=== PATIENT | female | born 1955 | race African-American/Black ===

== ENCOUNTER 2016-07-05 03:12 | Inpatient (IN) | payer OTHER ==
[~2016-07-05] VITALS: Ht 154.9 cm; Wt 46.0 kg
--- NOTE | ~2016-07-05 | EKG ---
[place] [address] [facility] [place] [address] ELECTROCARDIOGRAM REPORT Name: GAVIOTA KELLOGG Room #: 170-1 ADM IN M.R.#: [id number] Admission: 07/05/16 Attend Phys: Carrington Mario Discharge: Date of : 59 Report #: [id number] THIS REPORT FOR: //name// [facility] ED Test Date: 2016-07-05 Test Time: 03:24:13 Pat Name: GAVIOTA ECHEVARRIA Department: Room: 170 Gender: F Resident Physician In Radiology: DEREK : 1955 Requested By: Radha Apple Order Number: [id number] MD: Jorge Meadows Measurements Intervals [place] Rate: 106 P: 75 MO: 157 QRS: 44 QRSD: 82 T: 1 QT: 337 QTc: 448 Interpretive Statements Sinus tachycardia Right atrial abnormality Poor R wave progression Borderline T wave abnormalities No previous ECG available for comparison Electronically Signed On 07-05-2016 8:08:34 [employer] by Jorge Meadows [email or web address] <ELECTRONICALLY SIGNED> By: Jorge Meadows MD, [facility] 07/05/16 0808 [id number] Jorge Meadows MD, FACC /EPI
[~2016-07-05 03:12] MED LIST: ASPIRIN325 PO; DIFLUCAN150 MG PO; ESTRADIOL 1 MG T1 M1 PO; IBUPROFEN 600600 M1 PO; IBUPROFEN 800800 M1 PO; KEFLEX500 MG PO; LASIX 20 MG TAB20 MG PO; LISINOPRIL-HCT1 EAC2 PO; LISINOPRIL10 MG PO; METFORMIN HCL500 MG PO; NEXIUM40 MG PO; POTASSIUM20 PO; PREDNISONE 20 M20 MG PO
[2016-07-05 03:13] VITALS: BP 197/133
[2016-07-05 03:24] LABS: ABSOLUTE NEUTROPHILS 3.8 thou/uL (1.4-8.2); BASOPHILS 0.6 % (0.0-2.0); EOSINOPHILS 0.2 % (0.0-3.0); HEMATOCRIT 43.6 % (37.0-47.0); HEMOGLOBIN 14.7 gm/dL (12.0-15.0); LYMPHOCYTES 13.4 % (24.0-44.0); MCH 31.6 pg (26.0-34.0); MCHC 33.7 % (28.0-37.0); MONOCYTES 11.1 % (1.0-8.0); PLATELET COUNT 258 thou/uL (150-400); POLYS 74.7 % (36.0-66.0); RBC 4.64 mil/uL (4.20-5.00); RDW 14.8 % (10.5-14.5); WBC 5.1 thou/uL (4.0-11.0)
[2016-07-05 03:28] LABS: MANUAL DIFF NO
[2016-07-05] MEDS ORDERED: PREDNISONE 20 M20 MG PO (03:32)
[2016-07-05] MEDS ORDERED: CLONAZEPAM 0.50.5 M1 PO (03:33)
[2016-07-05 03:39] LABS: ANION GAP 9 mmol/L (7-16); BUN 12 mg/dL (7-18); CALCIUM 9.6 mg/dL (8.5-10.1); CHLORIDE 98 mmol/L (98-107); CO2 32 mmol/L (21-32); CREATININE 0.9 mg/dL (0.6-1.3); GLUCOSE 138 mg/dL (70-99); POTASSIUM 3.2 mmol/L (3.5-5.1); SODIUM 139 mmol/L (136-145)
[2016-07-05 03:46] LABS: ALBUMIN 3.8 g/dL (3.4-5.0); ALKALINE PHOSPHATASE 144 U/L (46-116); NT-PRO BRAIN NAT PEPTIDE 116 pg/mL (<300); SGOT 16 U/L (15-37); SGPT 16 U/L (30-65); TOTAL BILIRUBIN 0.3 mg/dL (<0.1-1.0); TOTAL PROTEIN 8.7 g/dL (6.4-8.2); TROPONIN-I < 0.04 ng/mL (<0.04-0.07)
[2016-07-05 12:32] VITALS: BP 132/84
[2016-07-05 13:06] VITALS: BP 149/86
[2016-07-05 16:31] VITALS: BP 182/83
[2016-07-05 19:10] VITALS: BP 167/76
[2016-07-05 19:20] VITALS: BP 147/55
[2016-07-06] VITALS (8 sets, daily range): BP systolic 153–193; BP diastolic 70–99
[2016-07-06] MEDS ORDERED: HYDROCHLOROTHIA25 M2 PO (08:20)
[2016-07-06] MEDS ORDERED: COLACE100 MG PO (08:22)
[2016-07-06] MEDS ORDERED: LYRICA 75 MG CA75 MG PO (08:22)
[2016-07-06] MEDS ORDERED: IRON325 PO (08:23)
[2016-07-06] MEDS ORDERED: SINGULAIR 10 MG10 M1 PO (08:25)
[2016-07-06] MEDS ORDERED: ASPIR-TRIN325 MG PO (13:00)
[2016-07-07] VITALS (7 sets, daily range): BP systolic 114–205; BP diastolic 72–118
[2016-07-08] VITALS: BP 190/98
[2016-07-08 04:00] VITALS: BP 162/87
[2016-07-08 08:11] VITALS: BP 174/106
[2016-07-08] MEDS ORDERED: IRON325 PO (09:23)
[2016-07-08] MEDS ORDERED: DUONEB 2.5-0.5 M3 ML INH (09:23)
[2016-07-08] MEDS ORDERED: ASPIR-TRIN325 MG PO (09:24)
[2016-07-08] MEDS ORDERED: COZAAR 50 MG TA50 M1 PO (09:24)
[2016-07-08] MEDS ORDERED: IBUPROFEN 600600 M1 PO (09:24)
[2016-07-08] MEDS ORDERED: LISINOPRIL10 MG PO (09:24)
[2016-07-08] MEDS ORDERED: NEXIUM40 MG PO (09:25)
[2016-07-08] MEDS ORDERED: LYRICA 75 MG CA75 MG PO (09:25)
[2016-07-08] MEDS ORDERED: AMBIEN 5 MG TABL5 M1 PO (09:25)
[2016-07-08] MEDS ORDERED: CLONAZEPAM 0.50.5 M1 PO (09:25)
[2016-07-08] MEDS ORDERED: COLACE100 MG PO (09:25)
[2016-07-08] MEDS ORDERED: HYDROCHLOROTHIA25 M2 PO (09:25)
[2016-07-08] MEDS ORDERED: SINGULAIR 10 MG10 M1 PO (09:25)
[2016-07-08] MEDS ORDERED: PREDNISONE 20 M20 MG PO (09:26)
[2016-07-08] MEDS ORDERED: ESTRADIOL 1 MG T1 M1 PO (09:27)
[2016-07-08] MEDS ORDERED: LEVAQUIN 500 M500 M2 PO (09:27)
[2016-07-08 09:48] VITALS: BP 174/106
== END 2016-07-08 12:47 | disposition home or self-care (01) | DRG 189 ==
LOC: ER 03:12 → 3N 04:24 → EROBS 04:24 → 3N 12:32
PROVIDERS: Emergency Medicine
DX: J96.01 Acute respiratory failure with hypoxia (principal); J44.9 Chronic obstructive pulmonary disease, unspecified; F17.210 Nicotine dependence, cigarettes, uncomplicated; E11.9 Type 2 diabetes mellitus without complications; I10 Essential (primary) hypertension; J40 Bronchitis, not specified as acute or chronic; K60.3 Anal fistula; Z87.01 Personal history of pneumonia (recurrent); Z79.899 Other long term (current) drug therapy; Z90.710 Acquired absence of both cervix and uterus; Z98.890 Other specified postprocedural states; Z99.81 Dependence on supplemental oxygen; Z79.82 Long term (current) use of aspirin
CPT/HCPCS: 10096